=== PATIENT | male | born 2000 ===

== ENCOUNTER 2022-10-07 08:20 | Emergency (ER) | payer MEDICAID, OTHER ==
[~2022-10-07] VITALS: Ht 177 cm; Wt 77.0 kg
[2022-10-07 08:48] VITALS: BP 144/95
--- NOTE | 2022-10-07 09:12 | ED Abdominal Pain ---
General Chief Complaint: Abdominal/GI Problems Stated Complaint: RT SIDE PAIN Nursing Triage Note: RIGHT SIDED PAIN THAT RADIATES UP TO RIGHT ARM. DENIES N/V/D History of Present Illness Date Seen by Provider: Oct 07, 2022 Time Seen by Provider: 09:10 Initial Comments 10-year-old male with no PMH, is here with complaints of RLQ pain which radiates up his right side, and which has been ongoing for the past 2 weeks or so. In the past 2 to 3 days his symptoms have been worsening. Denies any known URI, diarrhea, gastroenteritis, fever, chest pain, shortness of breath. Patient takes Tylenol which alleviates his pain, and he is also not drinking much water. His symptoms are associated with nausea but no vomiting. His last meal was last night and he is able to hold down his food and water. Allergies and Home Medications Allergies Coded Allergies: No Known Drug Allergies (Unverified , 10/07/22) Patient Home Medication List Home Medication List Reviewed: Yes Review of Systems Review of Systems Constitutional: no symptoms reported EENTM: No Symptoms Reported Respiratory: No Symptoms Reported Cardiovascular: No Symptoms Reported Gastrointestinal: Abdominal Pain, Nausea Genitourinary: No Symptoms Reported Musculoskeletal: no symptoms reported Skin: no symptoms reported Psychiatric/Neurological: No Symptoms Reported Endocrine: No Symptoms Reported Hematologic/Lymphatic: No Symptoms Reported Past Pgkfgxn-Xkrozo-Bitkgt Hx Patient Social History Tobacco Use?: No Substance use?: No Alcohol Use?: No Physical Exam Vital Signs Vital Signs - First Documented 10/07/22 08:48 Temp 37.3 Pulse 16 Resp 16 B/P (MAP) 144/95 (111) Pulse Ox 99 O2 Delivery Room Air Capillary Refill : Less Than 3 Seconds Height/Weight/BMI Height: '" Weight: lbs. oz. kg; 54.00 BMI Method: General Appearance: WD/WN, no apparent distress HEENT: PERRL/EOMI, normal ENT inspection Neck: non-tender, full range of motion, supple, normal inspection Respiratory: chest non-tender, lungs clear, normal breath sounds, no respiratory distress, no accessory muscle use Cardiovascular: regular rate, rhythm Gastrointestinal: normal bowel sounds, soft, no organomegaly, tenderness Extremities: normal range of motion Back: normal inspection, no CVA tenderness Neurologic/Psychiatric: alert, normal mood/affect, oriented x 3 Skin: normal color Focused Exam Lactate Level 10/07/22 09:40: Lactic Acid Level 1.48 Lactic Acid Level Laboratory Tests Test 10/07/22 09:40 Lactic Acid Level 1.48 MMOL/L (0.50-2.00) Progress/Results/Core Measures Results/Orders Lab Results Laboratory Tests Test 10/07/22 09:40 10/07/22 09:54 Range/Units White Blood Count 11.8 H 4.3-11.0 10^3/uL Red Blood Count 5.77 H 4.30-5.52 10^6/uL Hemoglobin 17.4 13.3-17.7 g/dL Hematocrit 49 40-54 % Mean Corpuscular Volume 84 80-99 fL Mean Corpuscular Hemoglobin 30 25-34 pg Mean Corpuscular Hemoglobin Concent 36 32-36 g/dL Red Cell Distribution Width 14.2 10.0-14.5 % Platelet Count 444 H 130-400 10^3/uL Mean Platelet Volume 10.9 9.0-12.2 fL Immature Granulocyte % (Auto) 0 % Neutrophils (%) (Auto) 68 42-75 % Lymphocytes (%) (Auto) 15 12-44 % Monocytes (%) (Auto) 8 0-12 % Eosinophils (%) (Auto) 8 0-10 % Basophils (%) (Auto) 1 0-10 % Neutrophils # (Auto) 8.0 H 1.8-7.8 10^3/uL Lymphocytes # (Auto) 1.8 1.0-4.0 10^3/uL Monocytes # (Auto) 1.0 0.0-1.0 10^3/uL Eosinophils # (Auto) 1.0 H 0.0-0.3 10^3/uL Basophils # (Auto) 0.1 0.0-0.1 10^3/uL Immature Granulocyte # (Auto) 0.0 0.0-0.1 10^3/uL Sodium Level 138 135-145 MMOL/L Potassium Level 4.4 3.6-5.0 MMOL/L Chloride Level 106 98-107 MMOL/L Carbon Dioxide Level 27 21-32 MMOL/L Anion Gap 5 5-14 MMOL/L Blood Urea Nitrogen 10 7-18 MG/DL Creatinine 0.82 0.60-1.30 MG/DL Estimat Glomerular Filtration Rate 126 BUN/Creatinine Ratio 12 Glucose Level 96 70-105 MG/DL Lactic Acid Level 1.48 0.50-2.00 MMOL/L Calcium Level 9.1 8.5-10.1 MG/DL Corrected Calcium 8.9 8.5-10.1 MG/DL Magnesium Level 1.8 1.6-2.4 MG/DL Total Bilirubin 0.5 0.1-1.0 MG/DL Aspartate Amino Transf (AST/SGOT) 24 5-34 U/L Alanine Aminotransferase (ALT/SGPT) 45 0-55 U/L Alkaline Phosphatase 71 40-136 U/L Total Protein 7.2 6.4-8.2 GM/DL Albumin 4.3 3.2-4.5 GM/DL Lipase 33 8-78 U/L Urine Color YELLOW Urine Clarity CLEAR Urine pH 6.5 5-9 Urine Specific [place] 1.010 L 1.016-1.022 Urine Protein NEGATIVE NEGATIVE Urine Glucose (UA) NEGATIVE NEGATIVE Urine Ketones NEGATIVE NEGATIVE Urine Nitrite NEGATIVE NEGATIVE Urine Bilirubin NEGATIVE NEGATIVE Urine Urobilinogen 0.2 < = 1.0 MG/DL Urine Leukocyte Esterase NEGATIVE NEGATIVE Urine RBC (Auto) NEGATIVE NEGATIVE Urine RBC NONE /HPF Urine WBC RARE /HPF Urine Squamous Epithelial Cells RARE /HPF Urine Crystals NONE /LPF Urine Bacteria NEGATIVE /HPF Urine Casts NONE /LPF Urine Mucus NEGATIVE /LPF Urine Culture Indicated NO Urine Opiates Screen NEGATIVE NEGATIVE Urine Oxycodone Screen NEGATIVE NEGATIVE Urine Methadone Screen NEGATIVE NEGATIVE Urine Propoxyphene Screen NEGATIVE NEGATIVE Urine Barbiturates Screen NEGATIVE NEGATIVE Ur Tricyclic Antidepressants Screen NEGATIVE NEGATIVE Urine Phencyclidine Screen NEGATIVE NEGATIVE Urine Amphetamines Screen NEGATIVE NEGATIVE Urine Methamphetamines Screen NEGATIVE NEGATIVE Urine Benzodiazepines Screen NEGATIVE NEGATIVE Urine Cocaine Screen NEGATIVE NEGATIVE Urine Cannabinoids Screen NEGATIVE NEGATIVE Influenza Type A (RT-PCR) Not Detected Not Detecte Influenza Type B (RT-PCR) Not Detected Not Detecte SARS-CoV-2 RNA (RT-PCR) Not Detected Not Detecte My Orders Orders - GABO DOMINIQUE MD Drug Screen Stat (Urine) (10/07/22 09:19) Ua Culture If Indicated (10/07/22 09:19) Cbc With Automated Diff (10/07/22 09:25) Comprehensive Metabolic Panel (10/07/22 09:25) Lactic Acid Analyzer (10/07/22 09:25) Lipase (10/07/22 09:25) Magnesium (10/07/22 09:25) Ct Abdomen/Pelvis W (10/07/22 09:26) Ed Iv/Invasive Line Start (10/07/22 09:27) Ns Iv 1000 Ml (Sodium Chloride 0.9%) (10/07/22 09:30) Ketorolac Injection (Toradol Injection) (10/07/22 09:30) Covid 19 Inhouse Test (10/07/22 09:28) Influenza A And B By Pcr (10/07/22 09:28) Iohexol Injection (Omnipaque 350 Mg/Ml 1 (10/07/22 09:30) Received Contrast (Hold Metformin- Contr (10/07/22 09:30) Ns (Ivpb) (Sodium Chloride 0.9% Ivpb Bag (10/07/22 09:30) Sodium Chloride Flush (Catheter Flush Sy (10/07/22 09:30) Medications Given in ED Current Medications Medications Dose Ordered Sig/Jimmy Route Start Time Stop Time Status Last Admin Dose Admin Iohexol 100 ml ONCE ONCE IV 10/07/22 09:30 10/07/22 09:31 DC 10/07/22 09:41 80 ML Ketorolac Tromethamine 15 mg ONCE ONCE IVP 10/07/22 09:30 10/07/22 09:31 DC 10/07/22 09:35 15 MG Sodium Chloride 10 ml NEEDED PRN IV 10/07/22 09:30 10/07/22 09:41 10 ML Sodium Chloride 100 ml ONCE ONCE IV 10/07/22 09:30 10/07/22 09:31 DC 10/07/22 09:41 80 ML Vital Signs/I&O 10/07/22 08:48 Temp 37.3 Pulse 16 Resp 16 B/P (MAP) 144/95 (111) Pulse Ox 99 O2 Delivery Room Air Blood Pressure Mean: 111 Progress Progress Note : Progress Note 1. RLQ PAIN: MESENTERIC ADENITIS: - CT ABD: Mesenteric adenitis -Labs unremarkable except for a WBC of 11.8 with a left shift - UA normal -COVID and flu test is negative -Advised adequate hydration, Tylenol/ibuprofen as needed pain, prescription for Flagyl 5 mg twice daily for 7 days since patient has an elevated white count and symptoms have been ongoing for a week or 2. Zofran prescription as needed vomiting -Advised patient to follow-up with PCP within the next 3 to 5 days -The patient was seen in the ED, and treated appropriately to presentation at a specific point in time. Patient is informed that there is a possibility that disease and illness can evolve and change in acuity rapidly or slowly after patient is discharged from the ER. Precautionary advice given to the patient for immediate return to ER if symptoms worsen or do not resolve, and to seek emergency care sooner rather than later. Pt also advised on the importance of PCP follow up and compliance with management and follow up plan with PCP and/or specialist, as this is part of the management plan. Pt verbally expressed understanding. Departure Impression Primary Impression: Nonspecific mesenteric adenitis Disposition: HOME, SELF-CARE Condition: Stable Departure-Patient Inst. Referrals: NO,LOCAL PHYSICIAN (PCP/Family) Primary Care Physician Patient Instructions: Mesenteric Lymphadenitis, Mesenteric Lymphadenitis (DC) Add. Discharge Instructions: -Advised adequate hydration, Tylenol/ibuprofen as needed pain, prescription for Flagyl 5 mg twice daily for 7 days -Zofran prescription every 4 hours as needed for nausea and vomiting -Advised patient to follow-up with PCP within the next 3 to 5 days All discharge instructions reviewed with patient and/or family. Voiced understanding. Scripts Ondansetron (Ondansetron Odt) 4 Mg Tab.rapdis 4 MG SL Q4H PRN for NAUSEA/VOMITING for 3 Days, TAB Prov: GABO DOMINIQUE MD 10/07/22 Metronidazole (Flagyl) 375 Mg Capsule 500 MG PO BID for 7 Days, #14 CAP Prov: GABO DOMINIQUE MD 10/07/22 Work/School Note: Work Release Form Date Seen in the Emergency Department: Oct 07, 2022 Return to Work: Oct 11, 2022 Restrictions: No Restrictions, Need Release from Doctor GABO DOMINIQUE MD Oct 07, 2022 09:12
[2022-10-07] MEDS ORDERED: IOHEXOL 350 MG/ML 100 ML (OMNIPAQUE 350) VIAL IV ONE (09:30)
[2022-10-07] MEDS ORDERED: HOLD METFORMIN - RECEIVED CONTRAST 20 ML VIAL IV SCH (09:30)
[2022-10-07] MEDS ORDERED: KETOROLAC 30 MG/ML VIAL IVP ONE (09:30)
[2022-10-07] MEDS ORDERED: CATHETER FLUSH 10 ML SYR IV PRN (09:30)
[2022-10-07] MEDS ORDERED: NS 100 ML (IVPB) BAG IV ONE (09:30)
[2022-10-07] MEDS ORDERED: NS IV 1000 ML 1,000 ML IV SCH (09:30)
[2022-10-07 09:49] LABS: BASOPHILS # (AUTO) 0.1 10^3/uL (0.0-0.1); BASOPHILS % (AUTO) 1 % (0-10); EOSINOPHILS % (AUTO) 8 % (0-10); HEMATOCRIT 49 % (40-54); HEMOGLOBIN 17.4 g/dL (13.3-17.7); LYMPHOCYTES # (AUTO) 1.8 10^3/uL (1.0-4.0); LYMPHOCYTES % (AUTO) 15 % (12-44); MEAN CORPUSCULAR HEMOGLOBIN 30 pg (25-34); MEAN CORPUSCULAR HGB CONC 36 g/dL (32-36); MEAN CORPUSCULAR VOLUME 84 fL (80-99); MEAN PLATELET VOLUME 10.9 fL (9.0-12.2); MONOCYTES % (AUTO) 8 % (0-12); NEUTROPHILS % (AUTO) 68 % (42-75); PLATELET COUNT 444 10^3/uL (130-400); WHITE BLOOD COUNT 11.8 10^3/uL (4.3-11.0)
[2022-10-07 10:00] LABS: ALBUMIN 4.3 GM/DL (3.2-4.5); POTASSIUM 4.4 MMOL/L (3.6-5.0)
--- NOTE | 2022-10-07 10:00 | Diagnostic Imaging Report ---
PROCEDURE: CT abdomen and pelvis with contrast. TECHNIQUE: Multiple contiguous axial images were obtained through the abdomen and pelvis after administration of intravenous contrast. Auto Exposure Controls were utilized during the CT exam to meet ALARA standards for radiation dose reduction. All CT scans use one or more of the following dose optimizing techniques: automated exposure control, MA and/or KvP adjustment based on patient size and exam type or iterative reconstruction. INDICATION: Abdominal pain COMPARISON: None available FINDINGS: Tiny right basilar pleural effusion with adjacent atelectasis. The liver is unremarkable. A few calcified splenic granuloma are present. Otherwise, the spleen is unremarkable. The adrenal glands are unremarkable. The pancreas is unremarkable. The gallbladder is unremarkable. The kidneys are unremarkable. No aneurysmal dilatation of the abdominal aorta. The appendix is unremarkable. The urinary bladder is unremarkable. No bowel obstruction or pneumatosis. Lymph nodes within the right lower quadrant are increased in size and number. No significant free fluid or free air. No acute osseous abnormality. IMPRESSION: Lymph nodes within the right lower quadrant are increased in size and number, most consistent with mesenteric adenitis. Trace right pleural effusion with adjacent atelectasis. Additional findings as described above. Dictated by: Dictated on workstation # [id number]
[2022-10-07 10:02] LABS: CALCIUM 9.1 MG/DL (8.5-10.1)
[2022-10-07 10:03] LABS: TOTAL PROTEIN 7.2 GM/DL (6.4-8.2)
[2022-10-07 10:05] LABS: BILIRUBIN,TOTAL 0.5 MG/DL (0.1-1.0)
[2022-10-07 10:06] LABS: CREATININE SERUM 0.82 MG/DL (0.60-1.30)
[2022-10-07 10:06] LABS: BILIRUBIN,URINE NEGATIVE (NEGATIVE); CLARITY,URINE CLEAR; COLOR,URINE YELLOW; GLUCOSE, URINE (UA) NEGATIVE (NEGATIVE); KETONES,URINE NEGATIVE (NEGATIVE); LEUKOCYTE ESTERASE ,URINE NEGATIVE (NEGATIVE); NITRITE,URINE NEGATIVE (NEGATIVE); PH,URINE 6.5 (5-9); PROTEIN,URINE NEGATIVE (NEGATIVE)
[2022-10-07 10:10] LABS: MAGNESIUM 1.8 MG/DL (1.6-2.4)
[2022-10-07 10:19] LABS: AMPHETAMINE SCREEN, URINE NEGATIVE (NEGATIVE); BARBITURATE SCREEN URINE NEGATIVE (NEGATIVE); BENZODIAZEPINES SCREEN URINE NEGATIVE (NEGATIVE); CANNABINOID SCREEN, URINE NEGATIVE (NEGATIVE); COCAINE SCREEN URINE NEGATIVE (NEGATIVE); METHADONE STAT NEGATIVE (NEGATIVE); OPIATE SCREEN URINE NEGATIVE (NEGATIVE); OXYCODONE STAT NEGATIVE (NEGATIVE); PROPOXYPHENE STAT NEGATIVE (NEGATIVE); TRICYCLIC ANTIDEPRESSANTS SCRE NEGATIVE (NEGATIVE)
[2022-10-07 10:20] LABS: BACTERIA,URINE NEGATIVE /HPF; SQUAMOUS EPITHELIAL CELL,UR RARE /HPF; WBC,URINE RARE /HPF
[2022-10-07] MEDS ORDERED: METR375C PO (12:09)
[2022-10-07] MEDS ORDERED: ONDA4TAB11 SL (12:09)
== END 2022-10-07 12:27 | disposition home or self-care (01) ==
LOC: ER 08:26
DX: I88.0 Nonspecific mesenteric lymphadenitis (principal); Z28.310 Unvaccinated for COVID-19; Z20.822 Contact with and (suspected) exposure to COVID-19
CPT/HCPCS: 36415; 74177; 80053; 80306; 81000; 83605; 83690; 83735; 85025; 87636